=== PATIENT | male | born 1945 | race Caucasian/White ===

== ENCOUNTER → 2018-12-12 | Outpatient (CLI) | payer OTHER | LOC: GMAJ 14:09 | PROVIDERS: ATTEND Family Medicine | DX: Z12.5 Encounter for screening for malignant neoplasm of prostate (principal) ==

== ENCOUNTER → 2019-02-16 | Outpatient (CLI) | payer OTHER ==
--- NOTE | 2019-02-18 16:22 | CT ---
CLINICAL HISTORY: 73 years Male, CHRONIC MAXILLARY SINUSITIS COMPARISON: Paranasal sinuses x-ray 02/12/2019. TECHNIQUE: Spiral, axial 2.5 x 2.5 mm scans through the maxillofacial bones without contrast. Coronal and sagittal 2.0 mm reconstructions. Axial, helical 2.5 mm reconstruction using bone algorithm. Total Exam DLP: 260.52 mGy-cm. This exam was performed according to our departmental CT dose-optimization program which includes automated exposure control, adjustment of the mA and/or kV according to patient size and/or use of iterative reconstruction technique; to reduce radiation dose to as low as reasonably achievable (ALARA). FINDINGS: 8 mm polyp or mucous retention cyst in the base of the right maxillary antrum with medial wall decompressed and thickening. No air-fluid levels. Left antrum unremarkable. Ostiomeatal units are intact. Minimal mucoperiosteal thickening in the ethmoid air cells. Also in the left frontal sinus. Other cavities are well aerated with no significant thickening and no air-fluid levels. Anterior septum deviated to the right. Melody bullosa in the right middle turbinate. Minimal to moderate turbinate mucosal hypertrophy with narrowing of the right nasal passageway more than the left. Included paranasal sinuses are well aerated. No fluid or significant soft tissue in the bilateral tympanic cavities. Internal auditory structures grossly normal. No bone destruction in the included [id number]. IMPRESSION: 1. Chronic paranasal sinusitis with polyp or mucous retention cyst in the right maxillary antrum. Minimal involvement of the ethmoid and frontal sinuses. No sinus air-fluid levels. Ostiomeatal units are patent. 2. Melody bullosa right middle turbinate. Mild to moderate narrowing of the nasal passageways. Electronically signed by: Praneeth López MD 02/18/2019 4:20 PM CDT
== END ==
LOC: LAB.O 09:57
PROVIDERS: ATTEND Family Medicine
DX: J32.0 Chronic maxillary sinusitis (principal); J34.9 Unspecified disorder of nose and nasal sinuses; I10 Essential (primary) hypertension

== ENCOUNTER → 2020-01-01 | Outpatient (CLI) | payer OTHER | LOC: RESP 13:40 | PROVIDERS: ATTEND Family Medicine | DX: R00.2 Palpitations (principal) ==

== ENCOUNTER → 2020-03-21 | Outpatient (CLI) | payer OTHER | LOC: GMAJ 13:05 | PROVIDERS: ATTEND Family Medicine | DX: Z12.5 Encounter for screening for malignant neoplasm of prostate (principal); I10 Essential (primary) hypertension; E78.00 Pure hypercholesterolemia, unspecified ==

== ENCOUNTER 2020-04-14 11:44 | Outpatient (CLI) | payer MEDICARE, OTHER ==
[2020-04-15 11:37] VITALS: BP 162/81; TEMP 97.3; O2SAT 96
== END 2020-04-15 12:30 | disposition home or self-care (01) ==
LOC: INFRM 11:44
PROVIDERS: ATTEND Family Medicine
DX: U07.1 COVID-19 (principal); I10 Essential (primary) hypertension; Z23 Encounter for immunization
CPT/HCPCS: 96365; M0239